=== PATIENT | female | born 1995 | race Caucasian/White ===

== ENCOUNTER → 2021-07-26 | Outpatient (CLI) | payer OTHER | LOC: COL.RAD 10:03 | DX: Z31.41 Encounter for fertility testing (principal) | CPT/HCPCS: Q9967 ==

== ENCOUNTER 2022-08-14 09:51 | Inpatient (IN) | payer OTHER ==
[2022-08-14] VITALS (43 sets, daily range): BP systolic 89–151; BP diastolic 52–93; PULSE 70–111; TEMP 97.5–98.2
[~2022-08-14] VITALS: Ht 157.5 cm; Wt 62.7 kg
[~2022-08-14 09:51] MED LIST: ONE DAILY MULTI1 TA1; PRENATAL DHA 200 SG PO; PRIL40 PO; PROZAC 20MG20 MG PO; TYLENOL 325MG325 MG PO
--- NOTE | 2022-08-14 09:55 | NUR ---
Pt arrived on unit ambulatory and with concerns for SROM at 0800 this morning. Pt denies any regular contractions or vaginal bleeding and reports normal movement. EFM and toco monitors started. Vital signs WNL. SVE by this RN FT/thick/high with positive amniotrace and fluid noted on exam. Dr. Barakat notified. See physician notification for details.
[2022-08-14 11:21] LABS: BASO % 0.4 % (0.0-2.0); EOS % 0.1 % (0.0-4.0); GRAN # 6.4 K/mm3 (1.4-6.5); GRAN % 78.5 % (42.2-75.2); HEMOGLOBIN 11.2 g/dl (12.5-16.0); LYMPH # 1.1 K/mm3 (1.2-3.4); LYMPH % 13.4 % (20.0-51.0); MEAN CELL VOLUME 93 fl (80.0-100.0); MEAN CORPUSCULAR HEMOGLOBIN 30 pg (27-31); MEAN CORPUSCULAR HGB CONC 33 g/dl (33.0-37.0); MEAN PLATELET VOLUME 10.1 fl (7.4-10.4); MONO # 0.6 K/mm3 (0.1-0.6); MONO % 7.2 % (1.7-9.3); PLATELET COUNT 192 K/mm3 (130-400); REDCELL DISTRIBUTION WIDTH-CV 19.5 % (11.5-14.5)
[2022-08-14 11:23] LABS: HEMATOCRIT 34.4 % (37.0-47.0)
--- NOTE | 2022-08-14 14:12 | NUR ---
Torsten SMITH BLUEPRINT MAKER CALLED FOR EPIDURAL
--- NOTE | 2022-08-14 16:45 | NUR ---
THIS RN IN ROOM REPOSITIONING PT AFTER LATE DECELERATION.
--- NOTE | 2022-08-14 17:40 | NUR ---
THIS RN IN ROOM REPOSITIONING PT. LR INFUSING. PT IN [facility]. REPOSITIONED TO LEFT LATERAL. THEN RIGHT LATERAL. 1750 SVE /-1. FHR RECOVERING.
--- NOTE | 2022-08-14 18:20 | NUR ---
1819- SHIFT REPORT RECEIVED, CARE ASSUMED. 1839- NURSE TO BEDSIDE. PLAN OF CARE DISCUSSED AND QUESTIONS ANSWERED. PT RESTING QUIETLY AND REPORTS SHE IS COMFORTABLE WITH EPIDURAL AT THIS TIME. 1914- PITOCIN INCREASED TO 18MUNITS DUE TO CONTRACTIONS SPACING OUT. PT IS AGREEABLE WITH THIS. PEANUT BALL PLACED UNDER LEFT LEG. 1939- DR FERNANDEZ AT DESK TO SEE ANOTHER PT. 1944- SVE BY THIS NURSE 7-8/100/0 WITH BLOODY SHOW. PT POSITIONED TO LEFT LATERAL WITH PEANUT BALL. MONITORS ADJUSTED. 1949- DR FERNANDEZ UPDATED CHARTED. NO NEW ORDERS AT THIS TIME. 1954- DR FERNANDEZ TO BEDSIDE TO DISCUSS PLAN OF CARE WITH PT AND ANSWER QUESTIONS. 2004- ZOFRAN GIVEN PER PT REQUEST FOR NAUSEA.
--- NOTE | 2022-08-14 21:00 | NUR ---
2100- NURSE TO BEDSIDE. SVE 100/+1. PLAN OF CARE DISCUSSED AND QUESTIONS ANSWERED.
--- NOTE | 2022-08-14 21:35 | NUR ---
2134- NURSE TO BEDSIDE. SVE COMPLETE AND +2. PT INSTRUCTED ON PUSHING AND QUESTIONS ANSWERED. 2139- STEVENSON CATHETER REMOVED. BLOOD TINGED URINE NOTED IN CATHETER. PT POSITIONED IN FOOTPLATES AND BEGINS COACHED PUSHING WITH CONTRACTIONS. 2205- PT MAKING GOOD PROGRESS WITH HER PUSHES, DR FERNANDEZ CALLED FOR DELIVERY. HE IS ON HIS WAY. 2219- DR FERNANDEZ HERE FOR DELIVERY. 2224- SPONTANEOUS VAGINAL DELIVERY OF VIABLE FEMALE, TO MOTHER'S ABDOMEN AND CARE OF NURSERY STAFF. 2228- SPONTANEOUS DELIVERY OF PLACENTA, EXAMINED BY DR FERNANDEZ. REPAIR OF 1ST DEGREE IN PROGRESS, PITOCIN INFUSING. 2240- REPAIR COMPLETE. PERICARE DONE AND ICEPACK TO PERINEUM. FEET DOWN FROM FOOTPLATES AND RECOVERY BEGAN.
[2022-08-15 00:10] VITALS: BP 114/58; PULSE 92
[2022-08-15 00:40] VITALS: BP 114/59; PULSE 80
[2022-08-15 02:30] VITALS: BP 103/63; PULSE 80; TEMP 99
--- NOTE | 2022-08-15 02:30 | NUR ---
0230-TEMP 99.0AX. AXILLARY TEMP DONE DUE TO PT EATING ICE AT THIS TIME.
[2022-08-15 06:46] LABS: HEMOGLOBIN 11.8 g/dl (12.5-16.0)
[2022-08-15 06:48] LABS: HEMATOCRIT 35.9 % (37.0-47.0)
[2022-08-15] MEDS ORDERED: IBU600 MG PO (08:53)
--- NOTE | 2022-08-15 09:16 | NUR ---
Initial visit; Parents thanked Hand Potter for looking in on them and offering congratulations and God's blessings for the of their daughter. Hand Potter thanked family for choosing [facility].
[2022-08-15 09:17] VITALS: BP 120/74; PULSE 88; TEMP 98.8
[2022-08-15 19:00] VITALS: BP 116/57; PULSE 73; TEMP 98.4
[2022-08-16 08:45] VITALS: BP 109/68; PULSE 73; TEMP 97.4
== END 2022-08-16 10:15 | disposition home or self-care (01) | DRG 807 ==
LOC: LDRO 09:51 → LDR 10:23 → OB 10:23
PROVIDERS: ADMIT Obstetrics & Gynecology
PROC: 10E0XZZ Delivery of Products of Conception, External Approach (ICD-10-PCS; principal; 2022-08-14)
PROC: 0HQ9XZZ Repair Perineum Skin, External Approach (ICD-10-PCS; 2022-08-14)
DX: O99.02 Anemia complicating childbirth (principal); Z37.0 Single live birth; Z3A.39 39 weeks gestation of pregnancy; Z86.16 Personal history of COVID-19; O99.344 Other mental disorders complicating childbirth; F41.9 Anxiety disorder, unspecified; F32.A Depression, unspecified; D50.9 Iron deficiency anemia, unspecified; F42.9 Obsessive-compulsive disorder, unspecified; O70.0 First degree perineal laceration during delivery; Z67.91 Unspecified blood type, Rh negative; K21.9 Gastro-esophageal reflux disease without esophagitis; O99.62 Diseases of the digestive system complicating childbirth; Z23 Encounter for immunization
CPT/HCPCS: J2405; J2590; J2791; J2795; J7120